=== PATIENT | female | born 1970 ===

== ENCOUNTER 2021-01-31 12:22 | Outpatient (CLI) | payer BC | END 2021-01-31 12:23 | disposition home or self-care (01) | LOC: BICMAMMO 12:22 | PROVIDERS: ATTEND Family Medicine | DX: Z12.31 Encounter for screening mammogram for malignant neoplasm of breast (principal) | CPT/HCPCS: 77063; 77067 ==

== ENCOUNTER 2023-04-21 14:20 | Outpatient (CLI) | payer BC | END 2023-04-21 14:21 | disposition home or self-care (01) | LOC: BICRAD 14:20 | PROVIDERS: ATTEND Family Medicine | DX: M25.562 Pain in left knee (principal); M25.561 Pain in right knee ==